=== PATIENT | male | born 2000 | race African-American/Black ===

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

== ENCOUNTER 2022-04-22 04:17 | Emergency (ER) | payer SELFPAY ==
[2022-04-22] MEDS ORDERED: Sodium Chloride 0.9% 10 ML Syringe FLUSH PRN (04:46)
[2022-04-22] MEDS ORDERED: Sodium Chloride 0.9% 1,000 ML IV ONE (04:46)
[2022-04-22] MEDS ORDERED: Sodium Chloride 0.9% 2.5 ML Syringe FLUSH PRN (04:46)
[2022-04-22] MEDS ORDERED: Sodium Chloride 0.9% 1,000 ML IV STA (04:48)
[2022-04-22] MEDS ORDERED: ceFAZolin 1 GM in Premix Bag 1 BAG IV STA (04:48)
[2022-04-22] MEDS ORDERED: Diphtheria,Pertussis(Acell),Tetanus Vaccine 0.5 ML Syringe IM ONE (04:48)
[2022-04-22] MEDS ORDERED: fentaNYL 50 MCG/ML SDV IVPUSH ONE ×2 (04:55→05:36)
[2022-04-22] MEDS ORDERED: fentaNYL 100 MCG/2 ML SDV ONE ×2 (04:56→05:34)
[2022-04-22] MEDS ORDERED: propofoL 100 ML IV SCH ×2 (05:00→06:15)
[2022-04-22 05:06] LABS: BLOOD UREA NITROGEN,BUN 11 mg/dL (7.0-18.0); CARBON DIOXIDE,CO2 26.3 mmol/L (21.0-32.0); CHLORIDE,CL 98 mmol/L (98-107); GLUCOSE RANDOM 152 mg/dL (74-106); POTASSIUM,K 3.2 mmol/L (3.5-5.1); SODIUM,NA 135 mmol/L (136-148)
[2022-04-22 05:11] LABS: ESTIMATED GFR 99 mL/min (>60)
[2022-04-22] MEDS ORDERED: propofoL 100 ML IV ONE ×2 (06:17)
== END 2022-04-22 06:35 ==
LOC: MW.ED 04:17
DX: S01.83XA Puncture wound without foreign body of other part of head, initial encounter (principal); Z23 Encounter for immunization; Z20.822 Contact with and (suspected) exposure to COVID-19
CPT/HCPCS: 31500; 36415; 71045; 80053; 80305; 80307; 81001; 85025; 85610; 85730; 87635; 90471; 90715; 96361; 96374; 99285; G0390; J0690; J2704; J3010; J7030; 99291; U0002

== ENCOUNTER 2023-06-09 17:20 | Emergency (ER) | payer SELFPAY | END 2023-06-09 17:52 | disposition left against medical advice (07) | LOC: MW.ED 17:20 | DX: Z53.21 Procedure and treatment not carried out due to patient leaving prior to being seen by health care provider (principal) ==

== ENCOUNTER 2023-12-14 01:01 | Emergency (ER) | payer SELFPAY | END 2023-12-14 01:30 | LOC: MW.ED 01:01 → MERGE 01:01 → MW.ED 01:30 | DX: F10.129 Alcohol abuse with intoxication, unspecified (principal); K08.89 Other specified disorders of teeth and supporting structures; Y90.9 Presence of alcohol in blood, level not specified | CPT/HCPCS: 99282; 99284 ==

== ENCOUNTER 2024-10-02 15:10 | Emergency (ER) | payer SELFPAY ==
[2024-10-02 16:37] LABS: APPEARANCE,URINE CLEAR; COLOR,URINE YELLOW; GLUCOSE,URINE NEGATIVE; PROTEIN,URINE NEGATIVE
[2024-10-02 16:38] LABS: BILIRUBIN,URINE NEGATIVE; KETONES,URINE NEGATIVE; LEUKOCYTE ESTERASE,URINE NEGATIVE (NEGATIVE); NITRITE,URINE NEGATIVE (NEGATIVE); OCCULT BLOOD,URINE NEGATIVE; UROBILINOGEN,URINE 0.2 (<1.0)
[2024-10-02 17:59] LABS: C. TRACHOMATIS BY PCR DETECTED; N. GONORRHOEAE BY PCR NOT DETECTED
[2024-10-02] MEDS: Azithromycin 250 MG Tab PO STA (18:47)
== END 2024-10-02 19:19 | disposition home or self-care (01) ==
LOC: MW.ED 15:10
DX: A74.9 Chlamydial infection, unspecified (principal); Z86.16 Personal history of COVID-19; Z75.8 Other problems related to medical facilities and other health care
CPT/HCPCS: 81003; 87491; 87591; 99283; A9270

== ENCOUNTER 2024-10-20 17:15 | Emergency (ER) | payer SELFPAY ==
[2024-10-20 17:41] LABS: BASOPHILS ABSOLUTE AUTO 0.02 K/uL (0.00-0.20); BASOPHILS PERCENT AUTO 0.3 % (0.0-1.0); EOSINOPHILS ABSOLUTE AUTO 0.09 K/uL (0.00-0.45); EOSINOPHILS PERCENT AUTO 1.2 % (0.0-6.0); HEMATOCRIT 42.6 % (42.0-52.0); HEMOGLOBIN 14.5 g/dL (14.0-18.0); IMMATURE GRAN ABSOLUTE AUTO 0.02 K/uL (0.00-0.05); IMMATURE GRAN PERCENT AUTO 0.3 % (0.0-0.4); LYMPHOCYTES ABSOLUTE AUTO 2.71 K/uL (1.00-4.80); LYMPHOCYTES PERCENT AUTO 36.2 % (24.0-44.0); MEAN CORPUSCULAR HEMOGLOBIN 27.7 pg (28.0-32.0); MEAN CORPUSCULAR VOLUME 81.3 fL (83.0-99.0); MEAN PLATELET VOLUME 9.4 fL (9.4-12.4); MONOCYTES ABSOLUTE AUTO 0.37 K/uL (0.00-0.80); MONOCYTES PERCENT AUTO 4.9 % (0.0-8.0); NEUTROPHILS ABSOLUTE AUTO 4.27 K/uL (1.80-7.70); NEUTROPHILS PERCENT AUTO 57.1 % (41.0-71.0); PLATELET COUNT,PLT 209 K/uL (150-400); RED BLOOD CELL COUNT 5.24 M/uL (4.52-5.90); WHITE BLOOD CELL COUNT,WBC 7.48 K/uL (3.9-11.3)
[2024-10-20] MEDS: Iopamidol 755 MG/ML 500 ML Multipack Bottle IVPUSH STA (17:48)
[2024-10-20 17:49] LABS: APPEARANCE,URINE CLEAR; BILIRUBIN,URINE NEGATIVE (NEGATIVE); COLOR,URINE YELLOW; GLUCOSE,URINE NEGATIVE (NEGATIVE); KETONES,URINE NEGATIVE (NEGATIVE); LEUKOCYTE ESTERASE,URINE NEGATIVE (NEGATIVE); NITRITE,URINE NEGATIVE (NEGATIVE); OCCULT BLOOD,URINE NEGATIVE (NEGATIVE); PROTEIN,URINE TRACE mg/dL (NEGATIVE); UROBILINOGEN,URINE 0.2 EU/dL (<2.0)
[2024-10-20 18:05] LABS: BACTERIA,URINE FEW (NEGATIVE); EPITHELIAL CELLS,URINE FEW (NONE-FEW); MUCUS,URINE LIGHT (NONE-MOD); WBC,URINE 0-3 (0-5/HPF)
[2024-10-20 18:10] LABS: A/G RATIO 1.1 (0.9-1.6); ALBUMIN 3.8 g/dL (3.4-5.0); BILIRUBIN TOTAL 0.6 mg/dL (0.2-1.0); CARBON DIOXIDE,CO2 22.2 mmol/L (21.0-32.0); CREATININE 1.3 mg/dL (0.8-1.3); EST CRCL DRUG DOSING (CG) 71.48 mL/min; POTASSIUM,K 3.8 mmol/L (3.5-5.1); PROTEIN TOTAL,TP 7.2 g/dL (6.4-8.2)
[2024-10-20] MEDS: Sodium Chloride 0.9% 1,000 ML IV ONE (18:58)
[2024-10-20] MEDS: Ketorolac 30 MG/ML SDV IVPUSH ONE (19:05)
[2024-10-20 21:26] LABS: C. TRACHOMATIS BY PCR NOT DETECTED; N. GONORRHOEAE BY PCR NOT DETECTED
== END 2024-10-20 20:22 | disposition home or self-care (01) ==
LOC: MW.ED 17:15
DX: N50.819 Testicular pain, unspecified (principal); F17.210 Nicotine dependence, cigarettes, uncomplicated
CPT/HCPCS: 36415; 74177; 76870; 80053; 81001; 83690; 85025; 87491; 87591; 93976; 96361; 96374; 99284; J1885; J7030; Q9967; 99283